=== PATIENT | female | born 1975 | race Asian ===

== ENCOUNTER 2020-05-12 08:22 | Emergency (ER) | payer OTHER ==
[~2020-05-12] VITALS: Ht 157.5 cm; Wt 65.5 kg
[2020-05-12] MEDS ORDERED: DiphenhydrAMINE HCL 25 MG CAPSULE PO ONE (09:00)
[2020-05-12 09:33] VITALS: BP 116/84
== END 2020-05-12 10:26 | disposition home or self-care (01) ==
LOC: EMS 08:27
DX: T78.40XA Allergy, unspecified, initial encounter (principal); X58.XXXA Exposure to other specified factors, initial encounter
CPT/HCPCS: 99282; Z7502; Z7610

== ENCOUNTER 2020-07-24 21:23 | Emergency (ER) | payer OTHER ==
[~2020-07-24] VITALS: Ht 157.5 cm; Wt 66.4 kg
[2020-07-24] MEDS ORDERED: GENTAMICIN SULFATE 0.3% OPHTHALMIC SOLUTION 5 ML OS ONE (23:30)
[2020-07-24] MEDS ORDERED: ACETAMINOPHEN/CODEINE 300-30 MG TABLET PO ONE (23:30)
[2020-07-24] MEDS ORDERED: CEPHALEXIN MONOHYDRATE 500 MG CAPSULE PO ONE (23:30)
[2020-07-24 23:57] VITALS: BP 132/75
== END 2020-07-25 00:34 | disposition home or self-care (01) ==
LOC: EDUNIT# 21:23 → EMS 21:23
DX: H00.014 Hordeolum externum left upper eyelid (principal); Z90.89 Acquired absence of other organs; Z90.710 Acquired absence of both cervix and uterus
CPT/HCPCS: 99284; Z7502; Z7610